=== PATIENT | male | born 1990 | race African-American/Black ===

== ENCOUNTER 2024-08-03 19:11 | Emergency (ER) | payer OTHER ==
[~2024-08-03] VITALS: Ht 182.9 cm; Wt 74.8 kg
[2024-08-03 21:07] VITALS: BP 169/108; TEMP 98.1; O2SAT 99
== END 2024-08-03 21:07 | disposition left against medical advice (07) ==
LOC: ER 19:20
DX: R07.89 Other chest pain (principal); F17.200 Nicotine dependence, unspecified, uncomplicated; Z88.2 Allergy status to sulfonamides; Z59.00 Homelessness unspecified
CPT/HCPCS: 71045-TC